=== PATIENT | male | born 1965 | race Caucasian/White ===

== ENCOUNTER 2017-05-12 16:52 | Emergency (ER) | payer SELFPAY ==
--- NOTE | 2017-05-12 17:35 | EDM.PDOC ---
ED HPI GENERAL MEDICAL PROBLEM - General Chief Complaint: Flank Pain Stated Complaint: back pain right Time Seen by Provider: 05/12/17 17:30 Source of Information: Reports: Patient History Limitations: Reports: No Limitations - History of Present Illness INITIAL COMMENTS - FREE TEXT/NARRATIVE: Pt woke with right sided flank pain today. Mild nausea. No injury known. No fever. Has noted chills. No vomiting. Now with diarrhea. Last ate 1530. Onset: Today, Sudden Duration: Colic, Constant Location: Reports: Back Improves with: Reports: Movement Worsens with: Reports: Rest Associated Symptoms: Reports: Fever/Chills, Nausea/Vomiting Right Flank Pain Score (Numeric/FACES): 6 - Related Data Allergies Allergy/AdvReac Type Severity Reaction Status Date / Time No Known Allergies Allergy Verified 05/12/17 17:11 Home Meds: Home Meds Allopurinol [Zyloprim] 300 mg PO DAILY 05/12/17 [History] Hydrochlorothiazide 25 mg PO DAILY 05/12/17 [History] Lisinopril 40 mg PO DAILY 05/12/17 [History] Metoprolol Tartrate 100 mg PO BID 05/12/17 [History] glyBURIDE [Glyburide] 5 mg PO BID 05/12/17 [History] metFORMIN [Glucophage] 1,000 mg PO BIDMEALS 05/12/17 [History] Past Medical History HEENT History: Reports: Impaired Vision Cardiovascular History: Reports: High Cholesterol, Hypertension Endocrine/Metabolic History: Reports: Diabetes, Type II - Infectious Disease History Infectious Disease History: Reports: Chicken Pox - Past Surgical History GI Surgical History: Reports: Hernia Repair/Other Social & Family History - Tobacco Use Years of Tobacco use: 5 Packs/Tins Daily: 0.5 - Caffeine Use Caffeine Use: Reports: Soda - Recreational Drug Use Recreational Drug Use: No ED ROS GENERAL - Review of Systems Review Of Systems: See Below Constitutional: Reports: Chills, Malaise HEENT: Reports: No Symptoms Respiratory: Reports: No Symptoms Cardiovascular: Reports: No Symptoms GI/Abdominal: Reports: Diarrhea, Nausea : Reports: Flank Pain, Urgency Musculoskeletal: Reports: Back Pain Skin: Reports: No Symptoms Neurological: Reports: No Symptoms Psychiatric: Reports: No Symptoms ED EXAM, RENAL/ - Physical Exam Exam: See Below Exam Limited By: No Limitations General Appearance: Alert, WD/WN, Mild Distress Ears: Normal External Exam, Normal Canal, Hearing Grossly Normal, Normal TMs Nose: Normal Inspection, Normal Mucosa, No Blood Throat/Mouth: Normal Inspection, Normal Lips, Normal Teeth, Normal Gums, Normal Oropharynx, Normal Voice, No Airway Compromise Head: Atraumatic, Normocephalic Neck: Normal Inspection, Supple, Non-Tender, Full Range of Motion Respiratory/Chest: No Respiratory Distress, Lungs Clear, Normal Breath Sounds, No Accessory Muscle Use, Chest Non-Tender Cardiovascular: Normal Peripheral Pulses, Regular Rate, Rhythm, No Edema, No Gallop, No JVD, No Murmur, No Rub GI/Abdominal: Normal Bowel Sounds, Soft, Non-Tender, No Organomegaly, No Distention, No Abnormal Bruit, No Mass Back Exam: CVA Tenderness (R) (right) Extremities: Normal Inspection, Normal Range of Motion, Non-Tender, Normal Capillary Refill, No Pedal Edema Neurological: Alert, Oriented, CN II-XII Intact, Normal Cognition, Normal Gait, Normal Reflexes, No Motor/Sensory Deficits Course - Vital Signs Last Recorded V/S: Last Vital Signs Temp 98.2 F 05/12/17 20:07 Pulse 85 05/12/17 20:07 Resp 16 05/12/17 20:07 BP 111/61 05/12/17 20:07 Pulse Ox 95 05/12/17 20:07 - Orders/Labs/Meds Orders: Active Orders 24 hr Category Date Time Status Kidney Stone Protocol [CT] Stat Exams 05/12/17 17:39 Taken Labs: Laboratory Tests 05/12/17 05/12/17 05/12/17 Range/Units 17:17 17:28 17:28 WBC 16.0 H (4.5-11.0) K/uL RBC 4.85 (4.30-5.90) M/uL Hgb 15.2 H (12.0-15.0) g/dL Hct 42.8 (40.0-54.0) % MCV 88 (80-98) fL MCH 31 (27-31) pg MCHC 36 (32-36) % Plt Count 286 (150-400) K/uL Neut % (Auto) 73 H (36-66) % Lymph % (Auto) 18 L (24-44) % Rains % (Auto) 8 H (2-6) % Eos % (Auto) 0 L (2-4) % Baso % (Auto) 1 (0-1) % Sodium 132 L (140-148) mmol/L Potassium 3.8 (3.6-5.2) mmol/L Chloride 95 L (100-108) mmol/L Carbon Dioxide 29 (21-32) mmol/L Anion Gap 11.8 (5.0-14.0) mmol/L BUN 19 H (7-18) mg/dL Creatinine 1.2 (0.8-1.3) mg/dL Est Cr Clr Drug Dosing 81.38 mL/min Estimated GFR (MDRD) > 60 (>60) Glucose 444 H* (74-106) mg/dL Calcium 9.0 (8.5-10.1) mg/dL Urine Color Yellow Urine Appearance Clear Urine pH 5.0 (4.5-8.0) Ur Specific [place] 1.015 (1.008-1.030) Urine Protein Negative (NEGATIVE) mg/dL Urine Glucose (UA) 1000 H (NEGATIVE) mg/dL Urine Ketones 15 H (NEGATIVE) mg/dL Urine Occult Blood Large (NEGATIVE) Urine Nitrite Negative (NEGAITVE) Urine Bilirubin Negative (NEGATIVE) Urine Urobilinogen Normal (NORMAL) mg/dL Ur Leukocyte Esterase Negative (NEGATIVE) Urine RBC 75-100 H (0-5) Urine WBC Not seen (0-5) Ur Epithelial Cells Not seen Amorphous Sediment Not seen Urine Bacteria Rare Urine Mucus Not seen Meds: Medications Discontinued Medications Generic Name Dose Route Start Last Admin Trade Name Freq PRN Reason Stop Dose Admin Hydromorphone HCl 0.5 mg 05/12/17 17:37 05/12/17 18:00 Dilaudid IVPUSH 05/12/17 17:38 0.5 mg ONETIME ONE Administration Hydromorphone HCl 0.5 mg 05/12/17 18:59 05/12/17 19:35 Dilaudid IVPUSH 05/12/17 19:00 0.5 mg ONETIME ONE Administration Hydromorphone HCl 0.5 mg 05/12/17 21:18 Dilaudid IVPUSH 05/12/17 21:19 ONETIME ONE Sodium Chloride 1,000 mls @ 999 drops/sec 05/12/17 17:38 05/12/17 18:01 Normal Saline IV 05/12/17 17:39 999 drops/sec .BOLUS ONE Administration Ceftriaxone Sodium 1 gm/ 50 mls @ 100 mls/hr 05/12/17 19:00 05/12/17 19:34 Sodium Chloride IV 05/12/17 19:29 100 mls/hr ONETIME ONE Administration Sodium Chloride 1,000 mls @ 999 drops/sec 05/12/17 19:05 05/12/17 19:33 Normal Saline IV 05/12/17 19:06 999 drops/sec .BOLUS ONE Administration Ketorolac Tromethamine 30 mg 05/12/17 20:11 05/12/17 20:28 Toradol IVPUSH 05/12/17 20:12 30 mg ONETIME ONE Administration Tamsulosin HCl 0.4 mg 05/12/17 19:04 05/12/17 19:32 Flomax PO 05/12/17 19:05 0.4 mg ONETIME ONE Administration Departure - Departure Time of Disposition: 21:20 Disposition: 20 Condition: Good Clinical Impression: Kidney stone on right side - Discharge Information Instructions: Kidney Stones, [id number] Referrals: Miguel Naqvi MD [Primary Care Provider] - Forms: ED Department Discharge Additional Instructions: IV initiated. NS infused. Dilaudid 0.5mg IV given. Pt later rates pain a 1. Labs with elevated WBC 16. Glucose 444. Urine with trace bacteria, 75-100 RBC' s. Other labs reviewed. Creatinine 1.2 Pt admits to not having well controlled type 2 diabetes. Drinks 3-4 bottles of diet pop daily. Encouraged to stop this. CT with kidney stone protocol completed. Shows 4mm stone with right sided hydronephrosis at the right ureterovesicular junction. Pain escalates again. Additional IV fluid NS 1 Liter hung. Dilaudid 0.5mg IV given x 2 doses. Flomax 0.4mg po given. Rocephin 1gm IV infused. Ketorolac 30mg IV given as well. Pt pain free upon discharged. Rx Cephalexin 500mg QID x 7 days. Hydrocodone 5/325mg 1-2 tabs q 6 hours prn pain. To fill in am. Force fluids. Followup if symptoms worsen or stone does not appear to be passing. - Problem List & Annotations (1) Kidney stone on right side SNOMED Code(s): 39043249 Code(s): N20.0 - CALCULUS OF KIDNEY Status: Acute Priority: Medium Current Visit: Yes - My Orders Last 24 Hours: My Active Orders 05/12/17 17:39 Kidney Stone Protocol [CT] Stat - Assessment/Plan Last 24 Hours: My Active Orders 05/12/17 17:39 Kidney Stone Protocol [CT] Stat
[2017-05-12] MEDS ORDERED: HYDROmorphone 0.5 MG/0.5 ML Syringe IVPUSH ONE ×3 (17:37→21:18)
[2017-05-12] MEDS ORDERED: Sodium Chloride 0.9% 1,000 ML IV ONE ×2 (17:38→19:05)
[2017-05-12] MEDS ORDERED: cefTRIAXone 1 GM in Sodium Chloride 0.9% 50 ML IV ONE (19:00)
[2017-05-12] MEDS ORDERED: Tamsulosin 0.4 MG Cap.ER PO ONE (19:04)
[2017-05-12] MEDS ORDERED: Ketorolac 30 MG/ML SDV IVPUSH ONE (20:11)
[2017-05-12 21:22] VITALS: BP 140/66
== END 2017-05-12 21:33 | disposition home or self-care (01) ==
LOC: JP.ED 16:52
DX: N20.0 Calculus of kidney (principal); I10 Essential (primary) hypertension; E78.00 Pure hypercholesterolemia, unspecified; E11.9 Type 2 diabetes mellitus without complications; F17.200 Nicotine dependence, unspecified, uncomplicated; Z79.84 Long term (current) use of oral hypoglycemic drugs; Z79.899 Other long term (current) drug therapy; Z98.890 Other specified postprocedural states
CPT/HCPCS: 36415; 74176; 80048; 81001; 85025; 96361; 96365; 96375; 96376; 99284; A9270; J0696; J1170; J1885; J7040; J7050; 99283

== ENCOUNTER 2021-04-12 13:36 | Emergency (ER) | payer OTHER ==
[2021-04-12 14:13] VITALS: BP 161/96; PULSE 87
--- NOTE | 2021-04-12 14:44 | EDM.PDOC ---
ED HPI GENERAL MEDICAL PROBLEM - General Chief Complaint: Laceration Stated Complaint: CUT EAR ON THE BOTTOM SIDE OF TRUCK Time Seen by Provider: 04/12/21 14:44 Source of Information: Reports: Patient, Other (clinic provider ) - History of Present Illness INITIAL COMMENTS - FREE TEXT/NARRATIVE: Benny is a 55 year old male whom presented to clinic for concern regarding ear laceration which occurred at work today. 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 Lots of bleeding noted, pres ented to clinic whom called ER for patient to be evaluated and care for today. Tetanus unknown per patient, but would like to be updated today. Injured occurred while at work today. Headache Pain Score (Numeric/FACES): 7 - Related Data Allergies Allergy/AdvReac Type Severity Reaction Status Date / Time No Known Allergies Allergy Verified 04/12/21 14:20 Home Meds: Home Meds Lisinopril 40 mg PO DAILY 05/12/17 [History] Metoprolol Tartrate 100 mg PO BID 05/12/17 [History] allopurinoL [Zyloprim] 300 mg PO DAILY 05/12/17 [History] glyBURIDE [Glyburide] 5 mg PO BID 05/12/17 [History] metFORMIN [Glucophage] 1,000 mg PO BIDMEALS 05/12/17 [History] Dulaglutide [Trulicity] 1 dose INJECT ASDIRECTED 04/12/21 [History] Pravastatin Sodium [Pravastatin (Pravachol)] 40 mg PO BEDTIME 04/12/21 [History] amLODIPine [Norvasc] 5 mg PO DAILY 04/12/21 [History] Past Medical History HEENT History: Reports: Impaired Vision Cardiovascular History: Reports: High Cholesterol, Hypertension Endocrine/Metabolic History: Reports: Diabetes, Type II - Infectious Disease History Infectious Disease History: Reports: Chicken Pox - Past Surgical History GI Surgical History: Reports: Hernia Repair/Other Musculoskeletal Surgical History: Reports: Arthroscopic Knee Social & Family History - Tobacco Use Tobacco Use Status *Q: Never Tobacco User - Caffeine Use Caffeine Use: Reports: Soda - Recreational Drug Use Recreational Drug Use: No ED ROS GENERAL - Review of Systems Review Of Systems: Comprehensive ROS is negative, except as noted in HPI. ED EXAM, SKIN/RASH Exam: See Below Exam Limited By: No Limitations General Appearance: Alert, WD/WN, No Apparent Distress Eye Exam: Bilateral Eye: Normal Inspection Ears: Normal External Exam, Other (Obvious horizontal linear laceration across inner to outer helix with bleeding noted. ) Throat/Mouth: Normal Voice, No Airway Compromise Neck: Normal Inspection Respiratory/Chest: No Respiratory Distress Cardiovascular: Normal Peripheral Pulses, Regular Rate, Rhythm Extremities: Normal Inspection, Normal Range of Motion Neurological: Alert, Oriented, CN II-XII Intact, Normal Cognition Psychiatric: Normal Affect, Normal Mood Skin: Warm, Dry, Intact, Normal Color, No Rash, Other (Laceration right ear noted) ED SKIN PROCEDURES - Laceration/Wound Repair Right Ear Appearance: Subcutaneous, Mildly Contaminated, Other (Involving outer helix cartiage ) Distal NVT: Neuro & Vascular Intact Anesthetic Type: Local Local Anesthesia - Lidocaine (Xylocaine): 1% with EPI Local Anesthetic Volume: 4cc Skin Prep: Chlorhexidine (Hibiciens), Saline Saline Irrigation (cc's): 200 Exploration/Debridement/Repair: Wound Explored, In a Bloodless Field, Explored to Base Closed with: Sutures Lac/Wound length In cm: 4.5 (perichondral repaired wtih simple sutures) Suture Size: 6-0 # of Sutures: 14 Suture Type: Running (anterior ), Simple (outer helix and posterior ear), Other (Vicryl) # of Sutures: 3 Sterile Dressing Applied: Provider Tetanus Status Addressed: Yes Course - Vital Signs Last Recorded V/S: Last Vital Signs Temp 36.4 C 04/12/21 14:19 Pulse 87 04/12/21 14:19 Resp 16 04/12/21 14:19 BP 161/96 H 04/12/21 14:19 Pulse Ox 94 L 04/12/21 14:19 - Orders/Labs/Meds Orders: Active Orders 24 hr Category Date Time Status Vaccines to be Administered [RC] PER UNIT ROUTINE Care 04/12/21 14:48 Active Meds: Medications Discontinued Medications Generic Name Dose Route Start Last Admin Trade Name Freq PRN Reason Stop Dose Admin Bacitracin 1 dose 04/12/21 14:48 Bacitracin Oint 1 Gm U/D Packet TOP 04/12/21 14:49 ONETIME ONE Diphtheria/Tetanus/Acell Pertussis 0.5 ml 04/12/21 14:48 Diphtheria,Pertussis(Acell),Tetanus Vaccine 0.5 Ml Syringe IM 04/12/21 14:49 .ONCE ONE Lidocaine/Epinephrine 5 ml 04/12/21 14:48 Lidocaine 1% With Epinephrine 1:100,000 50 Ml Mdv INJECT 04/12/21 14:49 ONETIME STA Departure - Departure Time of Disposition: 16:00 Disposition: Home, Self-Care 01 Clinical Impression: Elevated blood pressure reading, Ear lobe laceration, Tetanus toxoid vaccination administered at current visit - Discharge Information Instructions: VIS, Tetanus, Diphtheria, and Pertussis (Tdap) - CDC (12/11/2019), Laceration Care, Adult Referrals: Miguel Naqvi MD [Primary Care Provider] - Forms: ED Department Discharge Additional Instructions: 1. Cleanse wound every am and pm with soap and water. 2. Apply topical antibiotic ointment. Dressing is not needed unless wound is bleeding. 3. May leave open to air at night. 5. Tylenol/Ibuprofen for pain as needed. 6. Wound check in 2-3 days to ensure no signs of secondary infection. 7. Recommended suture removal in 7-10 days. Sepsis Event Note (ED) - Evaluation Sepsis Screening Result: No Definite Risk - Focused Exam Vital Signs: Vital Signs Temp Pulse Resp BP Pulse Ox 04/12/21 14:19 36.4 C 87 16 161/96 H 94 L 04/12/21 14:12 36.4 C 87 16 161/96 H 94 L - My Orders Last 24 Hours: My Active Orders 04/12/21 14:48 Vaccines to be Administered [RC] PER UNIT ROUTINE - Assessment/Plan Last 24 Hours: My Active Orders 04/12/21 14:48 Vaccines to be Administered [RC] PER UNIT ROUTINE
[2021-04-12] MEDS ORDERED: Bacitracin Oint 1 GM U/D Packet TOP ONE (14:48)
[2021-04-12] MEDS ORDERED: Diphtheria,Pertussis(Acell),Tetanus Vaccine 0.5 ML Syringe IM ONE (14:48)
[2021-04-12] MEDS ORDERED: Lidocaine 1% with EPINEPHrine 1:100,000 50 ML MDV INJECT STA (14:48)
== END 2021-04-12 16:26 | disposition home or self-care (01) ==
LOC: JP.ED 13:36
DX: S01.311A Laceration without foreign body of right ear, initial encounter (principal); E78.00 Pure hypercholesterolemia, unspecified; I10 Essential (primary) hypertension; E11.9 Type 2 diabetes mellitus without complications; Z79.899 Other long term (current) drug therapy; Z23 Encounter for immunization; W26.8XXA Contact with other sharp object(s), not elsewhere classified, initial encounter; Y99.0 Civilian activity done for income or pay
CPT/HCPCS: 12013; 90471; 90715; 99282-25

== ENCOUNTER 2022-09-21 14:51 | Emergency (ER) | payer OTHER ==
[2022-09-21 15:02] VITALS: BP 156/88; PULSE 93
[2022-09-21] MEDS ORDERED: Bacitracin Oint 1 GM U/D Packet TOP ONE (15:19)
[2022-09-21] MEDS ORDERED: Lidocaine 1% 5 ML VIAL INJECT ONE (15:19)
== END 2022-09-21 16:36 | disposition home or self-care (01) ==
LOC: JP.ED 14:51
DX: S51.812A Laceration without foreign body of left forearm, initial encounter (principal); E78.00 Pure hypercholesterolemia, unspecified; I10 Essential (primary) hypertension; E11.9 Type 2 diabetes mellitus without complications; F17.210 Nicotine dependence, cigarettes, uncomplicated; Z79.899 Other long term (current) drug therapy; Z79.84 Long term (current) use of oral hypoglycemic drugs; W26.8XXA Contact with other sharp object(s), not elsewhere classified, initial encounter
CPT/HCPCS: 12002; 99282

== ENCOUNTER 2024-08-15 14:04 | Emergency (ER) | payer OTHER ==
[2024-08-15 15:29] VITALS: BP 186/108; PULSE 94
== END 2024-08-15 15:27 | disposition home or self-care (01) ==
LOC: JP.ED 14:04
DX: S68.111A Complete traumatic metacarpophalangeal amputation of left index finger, initial encounter (principal); I10 Essential (primary) hypertension; E11.9 Type 2 diabetes mellitus without complications; E78.00 Pure hypercholesterolemia, unspecified; F17.210 Nicotine dependence, cigarettes, uncomplicated; Z79.899 Other long term (current) drug therapy; Z86.16 Personal history of COVID-19; Z79.84 Long term (current) use of oral hypoglycemic drugs; W26.8XXA Contact with other sharp object(s), not elsewhere classified, initial encounter; Y92.89 Other specified places as the place of occurrence of the external cause; Y99.0 Civilian activity done for income or pay
CPT/HCPCS: 73140-F1; 99283